=== PATIENT | male | born 1980 | race Caucasian/White ===

== ENCOUNTER 2017-04-25 13:14 | Emergency (ER) | payer OTHER ==
[~2017-04-25] VITALS: Ht 165.1 cm; Wt 88.6 kg
[~2017-04-25 13:14] MED LIST: BENA20TA3 PO; IBUP-2077 PO
[2017-04-25 14:23] LABS: APPEARANCE,URINE CLOUDY (CLEAR); GLUCOSE, URINE (UA) NEGATIVE (NEGATIVE); KETONES,URINE TRACE mg/dL (NEGATIVE); LEUKOCYTE ESTERASE ,URINE SMALL (NEGATIVE); OCCULT BLOOD,URINE LARGE (NEGATIVE); PROTEIN,URINE SEE CONFIRM (NEGATIVE)
[2017-04-25 14:42] LABS: SULFOSALICYLIC ACID,URINE 2+ (Negative)
[2017-04-25 14:44] LABS: RBC,URINE 51-100 /HPF (0-2); SQUAMOUS EPITHELIAL CELL,UR Moderate /LPF (None Seen)
[2017-04-25 14:47] LABS: ANION GAP 10 mmol/L (8-16); CALCIUM, TOTAL 9.1 mg/dL (8.8-10.5); CARBON DIOXIDE 28 mmol/L (22-29); CHLORIDE 105 mmol/L (98-107); CREATININE 0.98 mg/dL (0.60-1.30); GLOMERULAR FILTR. RATE CALC > 60 mL/min (>60); POTASSIUM 3.4 mmol/L (3.5-5.1); SODIUM SERUM 143 mmol/L (136-145); UREA NITROGEN, BLOOD 14 mg/dL (7-18)
[2017-04-25 14:54] LABS: ALANINE AMINOTRANSFERASE 50 U/L (12-78); ALBUMIN 4.8 g/dL (3.4-5.0); ASPARTATE AMINOTRANSFERASE 32 U/L (15-37); BILIRUBIN,TOTAL 0.6 mg/dL (0.1-1.0); TOTAL PROTEIN, SERUM 8.5 g/dL (6.4-8.2)
[2017-04-25 14:58] LABS: BASOPHILS % (AUTO) 0.3 % (0.0-2.0); EOSINOPHILS % (AUTO) 1.1 % (1.0-6.0); HEMATOCRIT 47.5 % (41-53); HEMOGLOBIN 16.6 g/dL (13.5-17.5); LYMPHOCYTES # (AUTO) 1.8 K/uL (1.0-4.8); LYMPHOCYTES % (AUTO) 20.8 % (22.0-44.0); MEAN CORPUSCULAR HEMOGLOBIN 31.1 pg (26.0-34.0); MEAN CORPUSCULAR VOLUME 89 fL (80-100); MONOCYTES # (AUTO) 0.6 K/uL (0.1-1.0); MONOCYTES % (AUTO) 6.7 % (2.0-9.0); NEUTROPHILS # (AUTO) 6.2 K/uL (1.8-7.7); NEUTROPHILS % (AUTO) 71.1 % (40.0-70.0); PLATELET COUNT (AUTO) 294 K/uL (150-450); RED BLOOD CELL COUNT(AUTO) 5.35 MIL/uL (4.50-5.90); RED CELL DISTRIBUTION WIDTH 13.2 % (11.5-14.5); WHITE BLOOD COUNT (AUTO) 8.7 K/uL (4.5-11.0)
[2017-04-25] MEDS ORDERED: ONDANSETRON HCL 4 MG/2 ML VIAL IVP ONE ×2 (15:45→20:15)
[2017-04-25] MEDS ORDERED: SODIUM CHLORIDE 0.9% 1,000 ML IV ONE ×2 (15:45→18:45)
[2017-04-25] MEDS ORDERED: HYDROmorphone 2 MG/ML SYRINGE IVP ONE ×2 (15:45→17:45)
[2017-04-25] MEDS ORDERED: BARIUM SULFATE 0.1% SUSPENSION 450 ML BOTTLE PO ONE (16:00)
[2017-04-25] MEDS ORDERED: IOVERSOL 350 MG/ML 100 ML VIAL ONE (17:00)
[2017-04-25] MEDS ORDERED: SODIUM CHLORIDE 0.9% 100 ML ONE (17:00)
[2017-04-25] MEDS ORDERED: TAMSULOSIN HCL 0.4 MG CAPSULE PO ONE (18:45)
[2017-04-25 19:23] VITALS: BP 119/88
[2017-04-29 00:07] LABS: GC DNA N.A. AMPLIFY Negative (Negative)
== END 2017-04-25 20:22 | disposition home or self-care (01) ==
LOC: EMS 13:16
DX: I10 Essential (primary) hypertension (principal); N20.9 Urinary calculus, unspecified; R10.31 Right lower quadrant pain; M54.9 Dorsalgia, unspecified
CPT/HCPCS: 36415; 74177; 80053; 80307; 81001; 81002; 83690; 85025; 87086; 87491; 87591; 96361; 96374; 96375; 96376; 99285; J1170; J2405; J7030; J7050; Q9967; Z7610

== ENCOUNTER 2018-01-14 20:16 | Emergency (ER) | payer OTHER ==
[~2018-01-14] VITALS: Ht 165.1 cm; Wt 90.9 kg
[2018-01-14] MEDS ORDERED: ZOLP10TA7 PO (20:28)
[2018-01-14] MEDS ORDERED: SIMV-259 PO (20:28)
[2018-01-14 20:59] LABS: BASOPHILS % (AUTO) 0.5 % (0.0-2.0); EOSINOPHILS % (AUTO) 1.3 % (1.0-6.0); HEMATOCRIT 46.9 % (41-53); HEMOGLOBIN 16.9 g/dL (13.5-17.5); LYMPHOCYTES % (AUTO) 24.5 % (22.0-44.0); MEAN CORPUSCULAR HEMOGLOBIN 31.1 pg (26.0-34.0); MEAN CORPUSCULAR HGB CONC 36.1 G/dL (31.0-37.0); MEAN CORPUSCULAR VOLUME 86 fL (80-100); MONOCYTES # (AUTO) 0.6 K/uL (0.1-1.0); MONOCYTES % (AUTO) 7.3 % (2.0-9.0); NEUTROPHILS # (AUTO) 5.6 K/uL (1.8-7.7); NEUTROPHILS % (AUTO) 66.4 % (40.0-70.0); PLATELET COUNT (AUTO) 304 K/uL (150-450); RED BLOOD CELL COUNT(AUTO) 5.44 MIL/uL (4.50-5.90); RED CELL DISTRIBUTION WIDTH 13.2 % (11.5-14.5)
[2018-01-14 21:12] LABS: ANION GAP 5 mmol/L (8-16); CALCIUM, TOTAL 9.3 mg/dL (8.8-10.5); CARBON DIOXIDE 30 mmol/L (22-29); CHLORIDE 102 mmol/L (98-107); CREATININE 0.92 mg/dL (0.60-1.30); GLOMERULAR FILTR. RATE CALC > 60 mL/min (>60); GLUCOSE,RANDOM 97 mg/dL (70-110); POTASSIUM 3.8 mmol/L (3.5-5.1); SODIUM SERUM 137 mmol/L (136-145); UREA NITROGEN, BLOOD 17 mg/dL (7-18)
[2018-01-14 21:18] LABS: BILIRUBIN,TOTAL 0.6 mg/dL (0.1-1.0); TOTAL PROTEIN, SERUM 8.2 g/dL (6.4-8.2)
[2018-01-14 21:32] LABS: ALANINE AMINOTRANSFERASE 53 U/L (12-78); ALBUMIN 4.4 g/dL (3.4-5.0); ALKALINE PHOSPHATASE 97 U/L (46-116); ASPARTATE AMINOTRANSFERASE 28 U/L (15-37)
[2018-01-15 01:44] VITALS: BP 136/86
== END 2018-01-15 01:44 | disposition home or self-care (01) ==
LOC: EMS 20:17
DX: R07.89 Other chest pain (principal); R00.2 Palpitations; I10 Essential (primary) hypertension; E78.00 Pure hypercholesterolemia, unspecified
CPT/HCPCS: 93005; 99285